=== PATIENT | female | born 1990 | race Caucasian/White ===

== ENCOUNTER 2023-04-27 14:10 | Outpatient (CLI) | payer OTHER ==
[2023-04-27 15:30] VITALS: BP 108/58; PULSE 78; RESP 16; TEMP 96.8
--- NOTE | 2023-05-12 11:56 | P.MSEPDOC ---
Presenting Problems - Arrival Data Date of Arrival on Unit: 04/27/23 Time of Arrival on Unit: 14:10 Mode of Transport: Ambulatory - Complaint OB-Reason for Admission/Chief Complaint: Possible Onset of Labor, Other Comment: constant back pain x2days, head pressure/SOB Medical History - Information : 4 Para: 2 Term: 2 : 0 Abortions: Spontaneous or Elective: 1 Number of Living Children: 2 - Gestational Age Gestational Age by LAY (wks/days): 37 Weeks and 3 Days Review of Systems - Review of Systems Constitutional: No problems Breast: No problems ENT: No problems Cardiovascular: No problems Respiratory: No problems Gastrointestinal: No problems Genitourinary: No problems Musculoskeletal: No problems Neurological: No problems Skin: No problems Vital Signs - Temperature Temperature: 96.8 F Temperature Source: Temporal Artery Scan - Pulse Pulse Oximetery Pulse Rate: 78 Pulse Assessment Method: Pulse Oximetry - Respirations Respiratory Rate: 16 Oxygen Delivery Method: Room Air O2 Sat by Pulse Oximetry: 97 - Blood Pressure Right Arm Blood Pressure: 108/58 Blood Pressure Mean: 74 Blood Pressure Source: Automatic Cuff Medical Screen Scoring - Cervical Exam Dilation (cm): 4.5 Effacement (%): 60 Station: -2 Membranes: Intact - Uterine Contractions Frequency From (mins): 8 Frequency To (mins): 16 Duration From (seconds): 70 Duration To (seconds): 90 Intensity: Moderate Resting: Soft to palpation - Assessment - Baby A Baseline FHR: 135 Heart Rate - NICHD Category: Category I (Normal) NST: Reactive Physician Notification - Physician Notified Physician Notified Date: 04/27/23 Physician Notified Time: 15:00 Physician: Ronit Goodwin New Order Received: Yes - Notification Comment Comment: Dr. Goodwin called, report given on maternal complaint of constant back pain. x2days and increased pressure in her head/SOB. Pulse ox 97%, HR 80, BP 108/58, lungs. clear to auscultation. Cx q8-12mins, SVE 4.5/60/-2 (same as 2 days ago). Orders to d/c. pt home with instructions to rest and hydrate and return if symptoms get worse. Maternal Triage Index - Maternal Triage Index Presenting for scheduled procedure w/no complaint: No - Stat/Priority 1 Stat Priority 1: No - Urgent/Priority 2 Urgent Priority 2: No - Prompt/Priority 3 Prompt Priority 3: No - Non-Urgent/Priority 4 Non-Urgent Priority 4: Yes Criteria Met for Priority 4: 37 3/7wks, constant back pain x2days, SOB/pressure in head Disposition - Disposition OB Disposition: Discharge to home Discharge Date: 04/27/23 Discharge Time: 15:20 I agree with the RN Medical Screening Exam: Yes Case reviewed; plan agreed upon as documented in EMR&OBIX.: Yes Diagnosis: LOW BACK PAIN, UNSPECIFIED
== END 2023-04-27 15:20 | disposition home or self-care (01) ==
LOC: FBPOP 14:10
PROVIDERS: ATTEND Obstetrics & Gynecology
DX: O26.893 Other specified pregnancy related conditions, third trimester (principal); M54.50 Low back pain, unspecified; Z3A.37 37 weeks gestation of pregnancy; Z88.8 Allergy status to other drugs, medicaments and biological substances
CPT/HCPCS: 59025; 99213

== ENCOUNTER 2023-05-08 06:00 | Inpatient (IN) | payer OTHER ==
--- NOTE | 2023-05-07 13:03 | P.HPOB ---
History of Present Illness H&P Date: 05/07/23 Chief Complaint: Induction of labor This is a 33 y.o. female, 4, para 2, with an estimated date of confinement of 05/15/2023, estimated gestational age of 39-0/7 weeks, who presents for induction of labor due to advanced cervical dilatation. She has been feeling irregular contractions, back pain and pressure. Her has been essentially uncomplicated. labs: GC/Chlamydia/Trich-neg Hemoglobin-13.3 Blood type-A+ Antibody screen-neg Rubella-immune Toxoplasma-neg RPR-NR HIV-NR Hepatitis C-neg Random glucose-81 Hepatitis B surface antigen-neg 1 hr. GTT-126 GBS-neg OB Hx: . History of 2 vaginal deliveries at term and 1 miscarriage. Solar [employer] Hx: No history of STDs Social Hx: Single. Works for [employer] Review of Systems Constitutional: Denies chills, Denies fever Eyes: denies blurred vision, denies pain Ears, nose, mouth and throat: Denies headache, Denies sore throat Cardiovascular: Denies chest pain, Denies shortness of breath Respiratory: Denies cough Gastrointestinal: Reports abdominal pain (irregular contractions) Genitourinary: Reports pelvic pain, Reports Musculoskeletal: Reports low back pain Neurological: Denies numbness, Denies weakness Psychiatric: Reports anxiety Past Medical History History of Any Multi-Drug Resistant Organisms: None Reported Additional Past Surgical History / Comment(s): Eye surgery Past Anesthesia/Blood Transfusion Reactions: No Reported Reaction Past Psychological History: Anxiety Smoking Status: Former smoker (quit with ) Past Alcohol Use History: None Reported Past Drug Use History: Marijuana (quit with ) - Past Family History Mother Family Medical History: No Reported History Medications and Allergies Home Medications Medication Instructions Recorded Confirmed Type Vit No.179/Iron/Folic 1 each PO DAILY 04/27/23 04/27/23 History [ Tablet] Allergies Allergy/AdvReac Type Severity Reaction Status Date / Time No Known Allergies Allergy Verified 04/27/23 14:17 Exam Osteopathic Statement: *. No significant issues noted on an osteopathic structural exam other than those noted in the History and Physical/Consult. HEENT: within normal limits Heart: regular rate and rhythm Lungs: clear to auscultation bilaterally Abdomen: , non-tender Cervix: 5 cm/80%/0 heart tones: 140's by doppler Extremities: neg. Eddie's Assessment and Plan (1) 39 weeks gestation of Status: Acute Code(s): Z3A.39 - 39 WEEKS GESTATION OF SNOMED Code(s): 59673283 Plan: Admission for oxytocin induction of labor. Expectant management. Epidural anesthesia if desired.
[2023-05-08] MEDS ORDERED: OXYTOCIN 10 UNIT/ML 1 ML VIAL IM PRN (06:18)
[2023-05-08] MEDS ORDERED: OXYTOCIN 30 UNITS/500 ML NS 30 UNIT in SALINE 1 500ML.BAG IV SCH (06:18)
[2023-05-08] MEDS ORDERED: TERBUTALINE 1 MG/ML VIAL SQ PRN (06:18)
[2023-05-08] MEDS ORDERED: METHYLERGONOVINE 0.2 MG/ML 1 ML AMP IM PRN (06:18)
[2023-05-08] MEDS ORDERED: miSOPROStoL 200 MCG TAB PO PRN (06:18)
[2023-05-08] MEDS ORDERED: LIDOCAINE 1% (10MG/ML) FOR IV START INTRADERMA PRN (06:18)
[2023-05-08] MEDS ORDERED: TRANEXAMIC 1,000 MG/100ML-NACL 1,000 MG in EMPTY BAG 1 BAG IV PRN (06:18)
[2023-05-08] MEDS ORDERED: CARBOPROST TROMETHAMINE 250 MCG/ML 1 ML AMP IM PRN (06:18)
[2023-05-08] MEDS ORDERED: LIDOCAINE 0.5% (PF) 5 MG/ML (50 ML SDV) SQ PRN (06:18)
[2023-05-08] MEDS: LACTATED RINGERS 1,000 ML IV SCH ×2 (06:32→07:37)
[2023-05-08 06:47] LABS: Basophils % (A) 0 %; Eosinophils # (A) 0.1 k/uL (0-0.7); Eosinophils % (A) 1 %; HCT 36.8 % (34.0-46.0); HGB 12.7 gm/dL (11.4-16.0); Lymphocytes # (A) 2.6 k/uL (1.0-4.8); Lymphocytes % (A) 24 %; MCH 31.9 pg (25.0-35.0); MCHC 34.3 g/dL (31.0-37.0); MCV 92.8 fL (80.0-100.0); Mean Platelet Volume 9.7; Monocytes # (A) 0.5 k/uL (0-1.0); Monocytes % (A) 4 %; Neutrophils # (A) 7.3 k/uL (1.3-7.7); Neutrophils % (A) 69 %; Platelet Count 150 k/uL (150-450); RBC 3.97 m/uL (3.80-5.40); RDW 13.6 % (11.5-15.5); WBC 10.7 k/uL (3.8-10.6)
[2023-05-08] MEDS ORDERED: fentaNYL (PF) 50 MCG/ML 5 ML AMP ONE (07:37)
[2023-05-08] MEDS ORDERED: SODIUM CHLORIDE 0.9% 100 ML BAG ONE (07:37)
[2023-05-08] MEDS ORDERED: ROPIVACAINE 5 MG/ML 20 ML AMPULE ONE (07:37)
[2023-05-08 08:46] LABS: Amphetamine Screen,Urine Not Detected (NotDetected); Barbiturate Screen,Urine Not Detected (NotDetected); Benzodiazepines Screen,Urine Not Detected (NotDetected); Cocaine Screen,Urine Not Detected (NotDetected); Methadone Screen, Urine Not Detected (NotDetected); Opiate Screen,Urine Not Detected (NotDetected); Oxycodone Screen, Urine Not Detected (NotDetected); Phencyclidine Screen,Urine Not Detected (NotDetected); Tricyclic Antidepressant,Urine Not Detected (NotDetected); Urn Cannabinoid Scrn Detected (NotDetected)
[2023-05-08] MEDS ORDERED: ZOLPIDEM 5 MG TAB PO PRN (09:55)
[2023-05-08] MEDS ORDERED: HYDROCORTISONE 2.5% RECTAL CREAM 30 GM TUBE RECTAL PRN (09:55)
[2023-05-08] MEDS ORDERED: ACETAMINOPHEN TAB 325 MG TAB PO PRN (09:55)
[2023-05-08] MEDS ORDERED: diphenhydrAMINE 50 MG/ML 1 ML VIAL IVP PRN ×2 (09:55)
[2023-05-08] MEDS ORDERED: SIMETHICONE 80 MG CHEWABLE PO PRN (09:55)
[2023-05-08] MEDS ORDERED: diphenhydrAMINE 25 MG CAP PO PRN (09:55)
[2023-05-08] MEDS ORDERED: diphenhydrAMINE 50 MG CAP PO PRN (09:55)
[2023-05-08] MEDS ORDERED: LANOLIN CREAM 5 GM TUBE TOPICAL PRN (09:55)
[2023-05-08] MEDS ORDERED: BENZOCAINE/MENTHOL SPRAY 1 GM/SPRAY AEROSOL TOPICAL PRN (09:55)
--- NOTE | 2023-05-08 13:08 | P.PROBDLV ---
Vaginal Delivery Note - . Vaginal Delivery Note: The patient progressed fairly rapidly to complete dilation after artificial rupture of membranes with blood-tinged fluid. She did receive epidural anesthesia. Once reaching complete, she began pushing. Infant's head came to a crown. With one further push, the infant's head delivered across the perineum followed by anterior shoulder. Nose and mouth were bulb suctioned at the perineum. With one remaining push, the remainder the easily delivered and was placed on mother's abdomen. Cord was clipped and cut and infant was taken to warmer for evaluation. Pediatrics was present for delivery. A viable female is noted with scores of 9 at 1 minute and 9 at 5 minutes and infant weight of 6 lbs. 7 oz. Placenta delivered shortly thereafter, intact, with a three-vessel cord. Uterus contracted well after oxytocin was given and uterine massage was carried out. Inspection of the perineum revealed no perineal lacerations. Estimated blood loss is approximately 150 mL's. Both mother and infant are in stable condition. Placenta was inspected and appeared normal however will be sent due to the blood-tinged fluid.
[2023-05-08] MEDS: IBUPROFEN 600 MG TAB PO PRN ×2 (14:07→23:09)
[2023-05-08] MEDS: SENNOSIDES-DOCUSATE SODIUM 1 EACH TAB PO SCH (21:34)
[2023-05-08 23:13] VITALS: RESP 16
[2023-05-09] MEDS: IBUPROFEN 600 MG TAB PO PRN (05:26)
[2023-05-09 06:17] LABS: Basophils % (A) 0 %; Eosinophils # (A) 0.1 k/uL (0-0.7); Eosinophils % (A) 1 %; HCT 30.7 % (34.0-46.0); HGB 10.3 gm/dL (11.4-16.0); Lymphocytes # (A) 2.5 k/uL (1.0-4.8); Lymphocytes % (A) 22 %; MCH 31.2 pg (25.0-35.0); MCHC 33.7 g/dL (31.0-37.0); MCV 92.5 fL (80.0-100.0); Mean Platelet Volume 10.1; Monocytes # (A) 0.5 k/uL (0-1.0); Monocytes % (A) 5 %; Neutrophils % (A) 71 %; Platelet Count 135 k/uL (150-450); RBC 3.31 m/uL (3.80-5.40); RDW 13.9 % (11.5-15.5); WBC 11.2 k/uL (3.8-10.6)
--- NOTE | 2023-05-09 08:04 | P.DS ---
Providers Date of admission: 05/08/23 06:00 Expected date of discharge: 05/09/23 Attending physician: Barbara Mallory Primary care physician: Stated None - Discharge Diagnosis(es) (1) 39 weeks gestation of Current Visit: No Status: Acute Hospital Course: This is a 33-year-old female 4 para 2 at 39-0/7 weeks who presented for induction of labor. She underwent oxytocin induction of labor and delivered vaginally a viable female with scores of 9 at 1 minute and 9 at 5 minutes and weight of 6 lbs. 7 oz. on 05/08/2023. Her course was complicated by a large clot the past last night but bleeding has slowed since that time Her pain is fairly well controlled. She is trying to breast- feed, but has supplemented with some formula. Her vital signs are stable. Abdomen is soft with fundus firm and nontender. Extremities show negative Homans. Impression is status post vaginal delivery day #1. Plan is to discharge home today. Routine instructions are given. He is advised to follow up in the office in 6 weeks for a check. She is advised to call the office if she has any further questions or concerns prior to her appointment time. She will be given a prescription for ibuprofen. She has a breast pump at home. Procedures: Oxytocin induction of labor Spontaneous vaginal delivery of a viable female on 05/08/2023 Patient Condition at Discharge: Stable Plan - Discharge Summary New Discharge Prescriptions: New Ibuprofen [Motrin] 600 mg PO Q6HR PRN #60 tab PRN Reason: Mild Pain (Scale 1 To 3) Continue Vit No.179/Iron/Folic [ Tablet] 1 each PO DAILY Discharge Medication List Vit No.179/Iron/Folic [ Tablet] 1 each PO DAILY 04/27/23 [History] Ibuprofen [Motrin] 600 mg PO Q6HR PRN #60 tab 05/09/23 [Rx] Follow up Appointment(s)/Referral(s): Barbara Mallory DO [Doctor of Osteopathic Medicine] - 06/17/23 11:30 am Activity/Diet/Wound Care/Special Instructions: Instructions 1. Do not begin any exercise program for 3 weeks. 2. Do not resume sexual relations for 3 weeks or longer if uncomfortable. 3. You may take tub baths or showers at any time. 4. You may use tampons if desired after 3 weeks. 5. Keep the area of episiotomy (stitches) clean and dry. 6. If you are not nursing, wear a good fitting, supportive bra during the day and limit fluid intake for at least 1 week to prevent breast engorgement. 7. Call the office, [phone], within the next week to make appointment for your 6 week checkup if it has not already been made. 8. Report any of the following occurrences to the doctor promptly: a. Heavy, excessive bleeding b. Chills, fever c. Burning or frequency of urination d. Pain or redness and breasts if nursing e. Increasing pain or swelling in episiotomy (stitches). In addition to the above instructions, the following additional should be followed: 1. No heavy lifting or straining (exercising) until after 6 week checkup. 2. Keep abdominal incision clean and dry: You may wear a dressing if more comfortable. 3. Make office appointment for 10 days after going home or as instructed by her doctor. Discharge Disposition: HOME SELF-CARE
[2023-05-09 10:02] VITALS: BP 97/62; PULSE 68; TEMP 98
[2023-05-09] MEDS: SENNOSIDES-DOCUSATE SODIUM 1 EACH TAB PO SCH (10:02)
== END 2023-05-09 13:00 | disposition home or self-care (01) | DRG 807 ==
LOC: 4FBP 06:00
PROVIDERS: ADMIT Obstetrics & Gynecology; ATTEND Obstetrics & Gynecology
PROC: 10E0XZZ Delivery of Products of Conception, External Approach (ICD-10-PCS; principal; 2023-05-08)
PROC: 10907ZC Drainage of Amniotic Fluid, Therapeutic from Products of Conception, Via Natural or Artificial Opening (ICD-10-PCS; 2023-05-08)
PROC: 3E033VJ Introduction of Other Hormone into Peripheral Vein, Percutaneous Approach (ICD-10-PCS; 2023-05-08)
DX: O80 Encounter for full-term uncomplicated delivery (principal); Z37.0 Single live birth; Z87.891 Personal history of nicotine dependence; Z3A.39 39 weeks gestation of pregnancy
CPT/HCPCS: 80306; 85025; 86850; 86900; 86901